=== PATIENT | female | born 1995 | race Asian ===

== ENCOUNTER 2024-09-15 14:20 | Emergency (ER) | payer MEDICAID, OTHER ==
[~2024-09-15] VITALS: Ht 170.2 cm; Wt 70.3 kg
[2024-09-15 14:30] VITALS: BP 160/104; TEMP 98.2
[2024-09-15] MEDS ORDERED: AMOX/CLAVULANATE 875 MG TABLET ONE (15:18)
[2024-09-15] MEDS: AMOX/CLAVULANATE 875 MG TABLET PO ONE (15:20)
[2024-09-15] MEDS ORDERED: AMOX-430 PO (16:21)
[2024-09-15] MEDS: BACI/NEOM/POLY B OINT PKT 1 UDPKT PACKET TP ONE (16:26)
[2024-09-15 16:28] VITALS: O2SAT 99
== END 2024-09-15 16:29 | disposition home or self-care (01) ==
LOC: ER 14:20
DX: S01.81XA Laceration without foreign body of other part of head, initial encounter (principal); Z88.7 Allergy status to serum and vaccine; W54.0XXA Bitten by dog, initial encounter; Y93.89 Activity, other specified; Y92.89 Other specified places as the place of occurrence of the external cause; Y99.8 Other external cause status
CPT/HCPCS: 70150-TC

== ENCOUNTER 2024-09-17 04:10 | Emergency (ER) | payer MEDICAID ==
[~2024-09-17] VITALS: Ht 170.2 cm; Wt 70.3 kg
[~2024-09-17 04:10] MED LIST: AMOX-430 PO
[2024-09-17 04:25] VITALS: BP 151/91; TEMP 98.1; O2SAT 98
== END 2024-09-17 05:10 | disposition left against medical advice (07) ==
LOC: ER 04:14
DX: S01.85XA Open bite of other part of head, initial encounter (principal); Z88.7 Allergy status to serum and vaccine; Z53.21 Procedure and treatment not carried out due to patient leaving prior to being seen by health care provider; X58.XXXA Exposure to other specified factors, initial encounter; Y93.89 Activity, other specified; Y92.89 Other specified places as the place of occurrence of the external cause; Y99.8 Other external cause status

== ENCOUNTER → 2024-12-10 | Emergency (ER) | payer MEDICAID ==
[~2024-12-10] VITALS: Ht 170.2 cm; Wt 70.3 kg
[2024-12-10 21:36] VITALS: BP 151/110; TEMP 97.9; O2SAT 99
== END | disposition home or self-care (01) ==
LOC: EDUNIT# 20:29 → ER 21:00
DX: R00.2 Palpitations (principal); I10 Essential (primary) hypertension